=== PATIENT | female | born 1990 | race Caucasian/White ===

== ENCOUNTER 2018-05-29 06:34 | Emergency (ER) | payer MEDICAID ==
[~2018-05-29] VITALS: Ht 160 cm; Wt 94.0 kg
[2018-05-29 06:40] VITALS: Ht 160 cm; Wt 94.0 kg
[2018-05-29 07:24] LABS: BASOPHIL % 0.3 % (0-2); PLATELET COUNT 250 x10^3mcL (130-400); RED CELL DISTRIBUTION WIDTH 13.8 % (11.5-14.5)
[2018-05-29 08:15] VITALS: BP 115/55
== END 2018-05-29 10:33 | disposition home or self-care (01) ==
LOC: ED 06:34
PROVIDERS: Emergency Medicine
DX: O20.0 Threatened abortion (principal); E66.01 Morbid (severe) obesity due to excess calories
CPT/HCPCS: 36415